=== PATIENT | female | born 1995 | race Caucasian/White ===

== ENCOUNTER 2018-04-01 16:42 | Emergency (ER) | payer OTHER ==
[~2018-04-01] VITALS: Ht 152.4 cm; Wt 50.0 kg
[~2018-04-01 16:42] MED LIST: EPIP0.3I IM; LOESTAB PO
[2018-04-01] MEDS ORDERED: IOHEXOL 350 MG/ML 10 ML VIAL (for RAD DIAG) IVCONTRAST ONE (16:43)
[2018-04-01 18:10] VITALS: BP 170/95; PULSE 90; RESP 18; TEMP 98.7; O2SAT 99
[2018-04-01] MEDS ORDERED: ADDE10 PO (20:50)
[2018-04-01] MEDS ORDERED: TRIL150T PO (20:50)
[2018-04-01 20:58] VITALS: BP 155/93; PULSE 78; RESP 16; O2SAT 98
--- NOTE | 2018-04-01 21:06 | PD ---
HPI Chief Complaint: Abdominal Pain Time Seen by Provider: 20:57 Travel History International Travel<30 days: No Contact w/Intl Traveler<30days: No Traveled to known affect area: No History of Present Illness HPI 22yo F with no significant PMH presents to the ED with c/o right lower abdominal pain since yesterday. Said it is dull, constant and associated with some nausea. There is also sharp pain that comes and goes. Denies any fever, chest pain, sob, vomiting, dysuria, vaginal discharge, focal weakness or numbness. Pt has IUD but said she has been having vaginal bleeding for 3 weeks which is unusual for her. PFSH Past Medical History ADD: Yes Bipolar Disorder: Yes Anxiety: Yes Diminished Hearing: No Immunizations Current: Yes Tetanus Vaccination: < 5 Years Influenza Vaccination: Yes ?: Not LMP: now : 0 Past Surgical History Surgical History: No Previous Surgery Social History Alcohol Use: Yes (rare) Tobacco Use: No Substance Use: No Allergies-Medications (Allergen,Severity, Reaction): Coded Allergies: No Known Allergies (Unverified Adverse Reaction, Unknown, 04/01/18) Reported Meds & Prescriptions Reported Meds & Active Scripts Active Reported Trileptal (Oxcarbazepine) 150 Mg Tab 150 Mg PO BID Adderall (Amphetamine-Dextroamphetamine) 10 Mg Tab 10 Mg PO BID Avoid late evening doses. Space doses at least 4 to 6 hours if more than once/day dosing. Review of Systems Except as stated in HPI: all other systems reviewed are Neg Physical Exam Narrative GENERAL: 22yo F not in distress. SKIN: Focused skin assessment warm/dry. HEAD: Atraumatic. Normocephalic. EYES: Pupils equal and round. No scleral icterus. No injection or drainage. ENT: No nasal bleeding or discharge. Mucous membranes pink and moist. NECK: Trachea midline. No JVD. CARDIOVASCULAR: Regular rate and rhythm. No murmur appreciated. RESPIRATORY: No accessory muscle use. Clear to auscultation. Breath sounds equal bilaterally. GASTROINTESTINAL: Abdomen soft, mild discomfort in RLQ. No rebound tenderness or guarding. PELVIC: IUD string in place. Small whitish discharge. Brownish old blood. No CMT or adnexal tenderness bilaterally. MUSCULOSKELETAL: No obvious deformities. No clubbing. No cyanosis. No edema. NEUROLOGICAL: Awake and alert. No obvious cranial nerve deficits. Motor grossly within normal limits. Normal speech. PSYCHIATRIC: Appropriate mood and affect; insight and judgment normal. Data Data Last Documented VS Vital Signs Date Time Temp Pulse Resp B/P (MAP) Pulse Ox O2 Delivery O2 Flow Rate FiO2 04/01/18 22:22 16 04/01/18 20:58 78 155/93 (113) 98 Room Air 04/01/18 18:10 98.7 Orders Orders Complete Blood Count With Diff (04/01/18 21:04) Comprehensive Metabolic Panel (04/01/18 21:04) Urinalysis - C+S If Indicated (04/01/18 21:04) Ed Urine Pregnancytest Poc (04/01/18 21:04) Ketorolac Inj (Toradol Inj) (04/01/18 21:30) Gc And Chlamydia Pcr (04/01/18 21:26) Wet Prep Profile (04/01/18 21:26) Ct Abd/Pel W Iv Contrast(Rout) (04/01/18 ) Iohexol 350 Inj (Omnipaque 350 Inj) (04/01/18 16:43) Potassium Chloride (Kcl) (04/01/18 23:15) Labs Laboratory Tests Test 04/01/18 21:30 White Blood Count 8.2 TH/MM3 Red Blood Count 4.60 MIL/MM3 Hemoglobin 14.5 GM/DL Hematocrit 41.7 % Mean Corpuscular Volume 90.6 FL Mean Corpuscular Hemoglobin 31.4 PG Mean Corpuscular Hemoglobin Concent 34.7 % Red Cell Distribution Width 13.1 % Platelet Count 429 TH/MM3 Mean Platelet Volume 7.9 FL Neutrophils (%) (Auto) 56.4 % Lymphocytes (%) (Auto) 32.7 % Monocytes (%) (Auto) 7.2 % Eosinophils (%) (Auto) 2.9 % Basophils (%) (Auto) 0.8 % Neutrophils # (Auto) 4.6 TH/MM3 Lymphocytes # (Auto) 2.7 TH/MM3 Monocytes # (Auto) 0.6 TH/MM3 Eosinophils # (Auto) 0.2 TH/MM3 Basophils # (Auto) 0.1 TH/MM3 CBC Comment DIFF FINAL Differential Comment Urine Color LIGHT-YELLOW Urine Turbidity CLEAR Urine pH 6.0 Urine Specific [place] 1.013 Urine Protein NEG mg/dL Urine Glucose (UA) NEG mg/dL Urine Ketones TRACE mg/dL Urine Occult Blood SMALL Urine Nitrite NEG Urine Bilirubin NEG Urine Urobilinogen LESS THAN 2.0 MG/DL Urine Leukocyte Esterase TRACE Urine RBC LESS THAN 1 /hpf Urine WBC LESS THAN 1 /hpf Urine Squamous Epithelial Cells 1 /hpf Microscopic Urinalysis Comment CULT NOT INDICATED Clue Cells (Wet Prep) NONE SEEN Vaginal Trichomonas (Wet Prep) NONE SEEN Vaginal Yeast (Wet Prep) NONE SEEN Blood Urea Nitrogen 10 MG/DL Creatinine 0.83 MG/DL Random Glucose 84 MG/DL Total Protein 8.4 GM/DL Albumin 4.7 GM/DL Calcium Level 9.4 MG/DL Alkaline Phosphatase 72 U/L Aspartate Amino Transf (AST/SGOT) 26 U/L Alanine Aminotransferase (ALT/SGPT) 36 U/L Total Bilirubin 0.6 MG/DL Sodium Level 138 MEQ/L Potassium Level 3.1 MEQ/L Chloride Level 102 MEQ/L Carbon Dioxide Level 25.4 MEQ/L Anion Gap 11 MEQ/L Estimat Glomerular Filtration Rate 85 ML/MIN MDM Medical Decision Making Medical Screen Exam Complete: Yes Emergency Medical Condition: Yes Differential Diagnosis Appendicitis vs. abnormal uterine bleeding vs. vs. PID Narrative Course 22yo F with RLQ abdominal pain since yesterday. On exam, pt is not very tender and said it feels a little sore. Labs reviewed, no leukocytosis. H/H normal. Mild hypokalemia at 3.1, replaced orally. UA showed WBC less than 1. Wet prep negative. Urine negative. CT a/p showed small amount of free fluid in the pelvis. No inflammatory changes in the right lower quadrant to suggest appendicitis although the appendix is not clearly visualized. Intrauterine device present. Small right renal cyst. Pt given toradol for pain. Pt reevaluated at bedside and has no abdominal pain. Clinically, pt is very well appearing and I do not think pt has appendicitis. Informed pt that the appendix was not visualized but no signs of inflammatory changes in right lower abdomen. Pt wants to go home and said she will return if her abdominal pain returns. Said she has ovarian cyst and knows about the renal cyst. Return precautions given. Diagnosis Primary Impression: Abdominal pain Qualified Codes: R10.31 - Right lower quadrant pain Patient Instructions: General Instructions Departure Forms: Tests/Procedures Additional Instructions: Please follow up with your primary care physician in 2-3 days. Return to the ED if symptoms return. Med/Other Pt SpecificInfo: Prescription(s) given Scripts Acetaminophen (Tylenol) 325 Mg Tab 650 MG PO Q6H Y for PAIN SCALE 1 TO 4, #20 TAB 0 Refills Prov: Xenia Reid DO 04/01/18 Disposition: 01 DISCHARGE HOME Condition: Stable Xenia Reid DO Apr 01, 2018 21:06
[2018-04-01] MEDS ORDERED: KETOROLAC TROMETHAMINE 30 MG/ML (IVP) VIAL IV PUSH ONE (21:30)
[2018-04-01 21:50] LABS: BILIRUBIN, URINE NEG (NEG); BLOOD, URINE SMALL (NEG); GLUCOSE,URINE NEG (NEG); KETONE, URINE TRACE mg/dL (NEG); NITRITE,URINE NEG (NEG); SQUAMOUS EPITHELIAL CELL URINE 1 /hpf (0-5); URINE COLOR LIGHT-YELLOW (YELLW/STRAW); URINE LEUKOCYTE ESTERASE TRACE (NEG)
[2018-04-01 21:56] LABS: AUTOMATED NEUTROPHIL # 4.6 TH/MM3 (1.8-7.7); BASOPHIL # 0.1 TH/MM3 (0-0.2); BASOPHIL % 0.8 % (0.0-2.0); EOSINOPHIL # 0.2 TH/MM3 (0-0.4); EOSINOPHIL % 2.9 % (0.0-4.0); HEMATOCRIT 41.7 % (35.0-46.0); HEMOGLOBIN 14.5 GM/DL (11.6-15.3); LYMPH % 32.7 % (9.0-44.0); LYMPHOCYTE # 2.7 TH/MM3 (1.0-4.8); MEAN CELL VOLUME 90.6 FL (80.0-100.0); MEAN CORPUSCULAR HEMOGLOBIN 31.4 PG (27.0-34.0); MEAN CORPUSCULAR HGB CONC 34.7 % (32.0-36.0); MEAN PLATELET VOLUME 7.9 FL (7.0-11.0); MONO % 7.2 % (0.0-8.0); MONOCYTE # 0.6 TH/MM3 (0-0.9); NEUT % 56.4 % (16.0-70.0); PLATELET COUNT 429 TH/MM3 (150-450); RED CELL DISTRIBUTION WIDTH 13.1 % (11.6-17.2); WHITE BLOOD COUNT 8.2 TH/MM3 (4.0-11.0)
[2018-04-01 22:19] LABS: ALBUMIN 4.7 GM/DL (3.4-5.0); ALT (GPT) 36 U/L (10-53); AST (GOT) 26 U/L (15-37); BICARBONATE 25.4 MEQ/L (21.0-32.0); BLOOD UREA NITROGEN 10 MG/DL (7-18); CALCIUM 9.4 MG/DL (8.5-10.1); CHLORIDE 102 MEQ/L (98-107); CREATININE 0.83 MG/DL (0.50-1.00); GLOMERULAR FILTRATION RATE 85 ML/MIN (>89); GLUCOSE,RANDOM 84 MG/DL (74-106); SODIUM (NA) 138 MEQ/L (136-145)
[2018-04-01 22:22] VITALS: RESP 16
[2018-04-01 22:22] LABS: ALKALINE PHOSPHATASE 72 U/L (45-117); TOTAL BILIRUBIN ADULT 0.6 MG/DL (0.2-1.0); TOTAL PROTEIN 8.4 GM/DL (6.4-8.2)
--- NOTE | 2018-04-01 22:31 | RADRPT ---
EXAM DATE: 04/01/2018 10:16 PM EDT AGE/SEX: 22 years / Female INDICATIONS: Right lower quadrant pain. CLINICAL DATA: This is the patient's initial encounter. Patient reports that signs and symptoms have been present for 1 day and indicates a pain score of 6/10. MEDICAL/SURGICAL HISTORY: . . ORAL CONTRAST: No oral contrast ingested. RADIATION DOSE: 4.62 CTDI (mGy) COMPARISON: No prior [facility] exams available for comparison. TECHNIQUE: Multiple contiguous axial images were obtained through the abdomen and pelvis following b olus infusion of 75 ml Omnipaque 350 (iohexol) nonionic water-soluble contrast as a single exam dos e. No oral contrast ingested. Using automated exposure control and adjustment of the mA and/or kV ac cording to patient size, the radiation dose was kept as low as reasonably achievable to obtain optima l diagnostic quality images. FINDINGS: Lung bases are clear. No acute findings in the liver, spleen, adrenals, left kidney or pancreas. Righ t renal cyst present. No calcified gallstones or biliary ductal dilatation. No bowel obstruction. No adenopathy. Intrauterine device is present. No acute bony abnormalities. No inflammatory changes identified in the right lower quadrant. Small amount free fluid in the pelvis. CONCLUSION: 1. Small amount of free fluid in the pelvis. No inflammatory changes in the right lower quadrant to suggest appendicitis although the appendix is not clearly visualized. 2. Intrauterine device present. Small right renal cyst. Electronically signed by: Rosales Grullon MD 04/01/2018 10:30 PM EDT
[2018-04-01] MEDS ORDERED: POTASSIUM CHLORIDE 20 MEQ CONTROLLED RELEASE TAB PO ONE (23:15)
[2018-04-01] MEDS ORDERED: TYLE325T PO (23:16)
== END 2018-04-01 23:27 | disposition home or self-care (01) ==
LOC: NEPD 16:42
DX: R10.31 Right lower quadrant pain (principal); R11.0 Nausea
CPT/HCPCS: 74177; 80053; 81001; 84703; 85025; 87210; 87491; 87591; 96374; 99285; J1885; Q9967